=== PATIENT | female | born 1965 | race Caucasian/White ===

== ENCOUNTER 2020-05-16 19:54 | Emergency (ER) | payer OTHER, SELFPAY ==
[2020-05-16 19:56] VITALS: BP 146/93; PULSE 69; RESP 18; TEMP 36.9; O2SAT 96; BMI 32.8
--- NOTE | 2020-05-16 21:05 | RAD_ITS ---
STUDY: X-RAY - LEFT KNEE REASON FOR EXAM: Female, 55 years old. LEFT KNEE PAIN X 1 YEAR TECHNIQUE: 4 view(s) of the knee. COMPARISON: None. FINDINGS: There is a surgical clip within the lateral femoral condyle. There is lucency likely from ACL repair in the proximal tibia and femur. There are small tricompartmental osteophytes. No acute fractures. There are no soft tissue lesions. RAD/Knee 4 or More Views IMPRESSION: Tricompartmental osteoarthrosis, no acute fractures Prior surgery for internal derangement, if there is clinical concern MRI knee could be performed. Electronically Signed: Chas Holley, at 21:24 EDT Tel , Service support ,
--- NOTE | 2020-05-16 21:33 | ED.DCSUM_ITS ---
History of Present Illness Chief Complaint: Lower Extremity Injury Informant: Patient Onset: Weeks Context: Sudden Onset Timing: Intermittent Quality: Limited range of motion with clicking and displacement of patella Location: Left knee Current Severity: Mild Maximum Severity: Moderate Worsened by: Nothing specific Relieved by: Usually by extension Narrative: Patient is a 55-year-old woman who states she was seen here a year ago. Prior records indicates she has not been here since 2012. She does not recall who she was referred to. There is no history of direct trauma. She denies paresthesia, anesthesia motors. She reports pain with weightbearing. Prior similar symptoms: Yes Recent Illness/Hospitalization: No - Past Medical History (1) Dislocation of patella, left, closed Status: Chronic Past Medical History - Allergies and Home Meds Allergies/Adverse Reactions: Allergies No Known Allergies Allergy (Verified 05/16/20 19:58) Primary Care Physician: Chin Sanchez MD [Primary Care Provider] - Prior records reviewed: Yes Surgical History: noncontributory Lives: Spouse/ Significant Other Smoking Status: Never smoker Alcohol: None Drugs: None Review of Systems General: Denies: Chills, Fever, Malaise, Subjective, Sweats Gastrointestinal: Denies: Nausea, Vomiting Musculoskeletal: Reports: Swelling, Extremity Pain. Denies: Myalgias, Arthralgias, Neck pain, Back pain Neurological: Denies: Headache, Parasthesia, Numbness Hematologic: Denies: Easy bruising, Easy bleeding Physical Exam Vital Signs/Narrative: Vital Signs Temp Pulse Resp BP Pulse Ox 05/16/20 19:56 98.4 F 69 18 146/93 H 96 Inital Vital Signs reviewed: Yes General: Well nourished, Well developed, Obese Head: Normocephalic, Atraumatic Eyes: Perrl, EOMI. Negative for: Pale conjunctiva Cardiovascular: Regular rate, Regular rhythm Respiratory: No distress Extremities: No edema, Tenderness - There is tenderness left knee joint line., - - Laxity of the lateral collateral ligament. Unable to perform modified Adriana's test. No laxity with Ryan's test. DP and PT pulse are palpable. There is no mass or fullness in the popliteal fossa. There is swelling the left knee compared to the right. There is no obvious effusion.. Negative for: Nontender Skin: Normal color, No rash Neurological: Alert, Oriented x3, Cranial nerves II-XII grossly intact, Normal Strength, Normal Sensation. Negative for: Normal Gait Psychological: Depressed Diagnostic/Tx/Re-eval Impressions Knee X-Ray 05/16/20 21:05 IMPRESSION: Tricompartmental osteoarthrosis, no acute fractures Prior surgery for internal derangement, if there is clinical concern MRI knee could be performed. Electronically Signed: Chas Holley, at 21:24 EDT Tel , Service support , 05/16/20 21:05 Knee 4 or More Views [RAD] Stat - Medical Decision Making 4 view x-ray of the knee was obtained to assess for arthritis. Patient's history suggestive of chronic subluxation or dislocation of left patella. The x-ray appears abnormal with mild degenerative changes. Read and waited for the radiology report he states there is evidence of tricompartment osteoarthritic arthritis. She was referred to orthopedist juvenile detention officer. She was treated with a knee immobilizer. ED Disposition - Plan for ED Patient: Disposition: Home or Assisted Living Diagnosis: Recurrent subluxation of patella, left knee, Tricompartment osteoarthritis of left knee Prescriptions: Naproxen [Naprosyn] 500 mg PO BID #14 tab Transmission Status: Pending to [id number] Referrals: Chin Sanchez MD [Primary Care Provider] -
--- NOTE | 2020-05-16 21:39 | ED.VISSUMM ---
- ER Visit Summary Date of Service: 05/16/20 Chief Complaint: [] History of Present Illness: The patient is a 55 F [] Physical Examination: [] Test Results: [] Emergency Department Course and Treatment: [] Treatment Plan: [] Disposition: [] Impression: [] This note was generated with [employer] dictation software. It may contain incorrect words, spelling, and punctuation that were not noted in review of the chart prior to signing ED Disposition - Plan for ED Patient: Disposition: Home or Assisted Living Diagnosis: Recurrent subluxation of patella, left knee, Tricompartment osteoarthritis of left knee Instructions: ED Dislocation Patella, ED Osteoarthritis Prescriptions: Naproxen [Naprosyn] 500 mg PO BID #14 tab Transmission Status: Sent to [id number] Referrals: Chin Sanchez MD [Primary Care Provider] - Juvenal Alvarez DO [STAFF PHYSICIAN] - 5-7 Days
[2020-05-16] MEDS: Naproxen 500 MG Tablet PO (22:15)
== END 2020-05-16 22:17 | disposition home or self-care (01) ==
PROVIDERS: Emergency Provider Emergency Medicine; PCP Family Medicine
DX: M22.12 Recurrent subluxation of patella, left knee (principal); M17.12 Unilateral primary osteoarthritis, left knee; E66.9 Obesity, unspecified; Z68.32 Body mass index [BMI] 32.0-32.9, adult
CPT/HCPCS: 73564; 99283

== ENCOUNTER 2020-06-26 05:22 | Day surgery (SDC) | payer OTHER, SELFPAY ==
[2020-06-20 08:45] VITALS: BMI 32.8
--- NOTE | 2020-06-20 08:45 | HP_ITS ---
Intake Vital Signs 06/20/20 BMI 32.8 Intake Visit Reasons: LEFT KNEE Allergies No Known Allergies Allergy (Verified 06/13/20 08:57) Medications acetaminophen 325 mg capsule 325 mg PO ONCE PRN 06/13/20 [History Confirmed 06/20/20] naproxen 250 mg tablet 250 mg PO BID PRN 06/13/20 [History Confirmed 06/20/20] PFSH Social History (Updated 06/20/20 @ 10:[address] Juvenal Alvarez DO) Smoking Status: Never smoker HPI LEFT KNEE: Surgical H&P: Yes Details: Parts of this documentation were recorded by a scribe, this documentation accurately reflects the service provided and the decisions made by me, Dr. Juvenal Alvarez DO 06/20/20 0748. ASHLEY ADAIR is a 55 year old F here today for F/U on left knee after having MRI completed. Patient is continuing to have catching and pain of the left knee. Denies numbness, tingling or other associated symptoms. States she is unable to walk d/t the pain. She has been trying NSAIDs at home. Denies any hx of blood clots. ROS Musc Reports joint pain, Reports joint swelling, Reports limited joint movement, Denies numbness, Denies radiating pain into limb, Reports stiffness, Denies tingling Skin/Breast Denies redness, Denies lesions, Denies itching, Denies rash, Denies skin swelling Neuro No numbness, No tingling Ortho Exam Right Knee Patella Translation: 1 Left Knee Skin/Wound: No ecchymosis, No erythema, No swelling Knee ROM: Yes ROM-Extension -20 to 0, Yes ROM-Flexion 0-140 Examination: Yes med jt line tenderness, No Lat jt line tenderness, No TTP inf pole patella, No Crepitus, Yes Adriana's Test Stability: NML: Anterior Drawer, NML: Posterior Drawer, NML: Valgus 0, NML: Valgus 30, NML: Varus 0, NML: Varus 30 Apprehension with Lateral Translation: No Patella Translation: 1 Patella Grind: Yes KNEE: TTP Anterior Medial No Joint Effusion No Patellar Instability Mild Patella Grind No MCL Tenderness Supplemental Info 06/08/2020 [facility] report and disc: Flap tear involving body of lateral meniscus, Flap tear involving the posterior horn and body medial meniscus. Grade II-III chondromalacia central trochlea grade III chondromalacia medial and lateral femoral condyle and lateral tibial plateau edema and fluid adjacent to proximal lateral gastrocnemius 05/16/2020 x-ray left knee: Radiological evidence of prior ACL reconstruction with button as femoral fixation Faint spurring of the lateral tibial plateau and tibial eminence And patellofemoral spurring Assessment & Plan Problems 1. Acute medial meniscus tear of left knee, subsequent encounter S83.242D 2. Acute lateral meniscus tear of left knee, subsequent encounter S83.282D 3. Primary osteoarthritis of left knee M17.12 Plan Personally reviewed the patients MRI of the left knee. Patient educated that she has very large medial and lateral meniscus tears along with OA of the left knee. Treatment options are do nothing or knee scope to preform medial and lateral meniscectomy. Patient educated that the knee scope may provide her with some relief but she may still have pain because of her arthritis. Reviewed the pre- operative plans with the patient. Risks and benefits of the procedure were fully explained, including but not limited to infection, neurovascular injury, continued pain, arthritis, stiffness, need for further surgery, re-injury, DVT, PE, general risks of anesthesia, and loss of limb or life. The patient understands all the risks and does wish to proceed with written consent. She will be WBAT after surgery. We will add her to the surgery schedule for 07/03/2020 If she is having pain 6 weeks post op then we can provide the patient with an injection. Follow up 2 weeks post op or sooner if pain, swelling, numbness or associated symptoms, or concerns develop. All questions answered. Patient in agreement of plan. Coding Level of Care Code Off vis,est,level 3 Diagnoses Acute medial meniscus tear of left knee, subsequent encounter S83.242D ??Encounter type: subsequent encounter Acute lateral meniscus tear of left knee, subsequent encounter S83.282D ??Encounter type: subsequent encounter Primary osteoarthritis of left knee M17.12 ??Osteoarthritis type: primary 06/20/20 1035 <Electronically signed by Juvenal rahman DO> Date _ Juvenal Alvarez DO
[2020-06-26] VITALS (9 sets, daily range): BP systolic 106–143; BP diastolic 56–86; PULSE 54–68; RESP 6–16; TEMP 36.2–36.7; O2SAT 91–96; BMI 32.9
[2020-06-26] MEDS: Lactated Ringers 1,000 ML 100 ML IV (06:00)
[2020-06-26] MEDS: Cefazolin 2 GM in 0.9% Normal Saline 100 ML IV (07:22)
--- NOTE | 2020-06-26 07:25 | HP.PCM_ITS ---
History and Physical Date of Admission: 06/26/20 Intake Vital Signs 06/20/20 BMI 32.8 Intake Visit Reasons: LEFT KNEE Allergies No Known Allergies Allergy (Verified 06/13/20 08:57) Medications acetaminophen 325 mg capsule 325 mg PO ONCE PRN 06/13/20 [History Confirmed 06/20/20] naproxen 250 mg tablet 250 mg PO BID PRN 06/13/20 [History Confirmed 06/20/20] PFSH Social History (Updated 06/20/20 @ 10:[address] Juvenal Alvarez DO) Smoking Status: Never smoker HPI LEFT KNEE: Surgical H&P: Yes Details: Parts of this documentation were recorded by a scribe, this documentation accurately reflects the service provided and the decisions made by me, Dr. Juvenal Alvarez DO 06/20/20 0748. ASHLEY ADAIR is a 55 year old F here today for F/U on left knee after having MRI completed. Patient is continuing to have catching and pain of the left knee. Denies numbness, tingling or other associated symptoms. States she is unable to walk d/t the pain. She has been trying NSAIDs at home. Denies any hx of blood clots. ROS Musc Reports joint pain, Reports joint swelling, Reports limited joint movement, Denies numbness, Denies radiating pain into limb, Reports stiffness, Denies tingling Skin/Breast Denies redness, Denies lesions, Denies itching, Denies rash, Denies skin swelling Neuro No numbness, No tingling Ortho Exam Right Knee Patella Translation: 1 Left Knee Skin/Wound: No ecchymosis, No erythema, No swelling Knee ROM: Yes ROM-Extension -20 to 0, Yes ROM-Flexion 0-140 Examination: Yes med jt line tenderness, No Lat jt line tenderness, No TTP inf pole patella, No Crepitus, Yes Adriana's Test Stability: NML: Anterior Drawer, NML: Posterior Drawer, NML: Valgus 0, NML: Valgus 30, NML: Varus 0, NML: Varus 30 Apprehension with Lateral Translation: No Patella Translation: 1 Patella Grind: Yes KNEE: TTP Anterior Medial No Joint Effusion No Patellar Instability Mild Patella Grind No MCL Tenderness Supplemental Info 06/08/2020 [facility] report and disc: Flap tear involving body of lateral meniscus, Flap tear involving the posterior horn and body medial meniscus. Grade II-III chondromalacia central trochlea grade III chondromalacia medial and lateral femoral condyle and lateral tibial plateau edema and fluid adjacent to proximal lateral gastrocnemius 05/16/2020 x-ray left knee: Radiological evidence of prior ACL reconstruction with button as femoral fixation Faint spurring of the lateral tibial plateau and tibial eminence And patellofemoral spurring Assessment & Plan Problems 1. Acute medial meniscus tear of left knee, subsequent encounter S83.242D 2. Acute lateral meniscus tear of left knee, subsequent encounter S83.282D 3. Primary osteoarthritis of left knee M17.12 Plan Personally reviewed the patients MRI of the left knee. Patient educated that she has very large medial and lateral meniscus tears along with OA of the left knee. Treatment options are do nothing or knee scope to preform medial and lateral meniscectomy. Patient educated that the knee scope may provide her with some relief but she may still have pain because of her arthritis. Reviewed the pre- operative plans with the patient. Risks and benefits of the procedure were fully explained, including but not limited to infection, neurovascular injury, continued pain, arthritis, stiffness, need for further surgery, re-injury, DVT, PE, general risks of anesthesia, and loss of limb or life. The patient understands all the risks and does wish to proceed with written consent. She will be WBAT after surgery. We will add her to the surgery schedule for 07/03/2020 If she is having pain 6 weeks post op then we can provide the patient with an injection. Follow up 2 weeks post op or sooner if pain, swelling, numbness or associated symptoms, or concerns develop. All questions answered. Patient in agreement of plan. Coding Level of Care Code Off vis,est,level 3 Diagnoses Acute medial meniscus tear of left knee, subsequent encounter S83.242D ??Encounter type: subsequent encounter Acute lateral meniscus tear of left knee, subsequent encounter S83.282D ??Encounter type: subsequent encounter Primary osteoarthritis of left knee M17.12 ??Osteoarthritis type: primary I have re-examined the patient. There are no clinical changes since date of exam Procedure Criteria Procedure Type: Elective COVID Risk Discussion: The surgeon/proceduralist and patient have discussed in detail the risk of exposure to and/or potential harm posed by the COVID-19 virus with having a surgery/procedure at this time versus the risk of delaying the surgery/pro cedure. It is not possible to know either the risk of delaying the surgery or procedure or chance of getting an infection with perfect accuracy, but a joint decision was made between the patient and the surgeon/proceduralist to proceed at this time with the scheduled surgery/procedure as indicated on the consent form.
[2020-06-26] MEDS: Epinephrine (1 mg/ml) 1 MG/ML VIAL (07:46)
[2020-06-26] MEDS: MethylPREDNISolone Acetate 80 MG/ML Vial (08:00)
[2020-06-26] MEDS: Bupiv/Epi 0.5% Mpf 30 ML Vial (08:00)
[2020-06-26] MEDS: Bupivacaine Mpf 0.5% 30 ML VIAL (08:00)
--- NOTE | 2020-06-26 08:30 | DCINST_ITS ---
Discharge Diet: No Restrictions Weight Bearing Status: Weight bearing as tolerated Keep extremity elevated above heart level: Operative Extremity Call your doctor if you observe: Fever of 101 or Higher, Shortness of breath, Chest pain Suture Line Care: Avoid Pulling/Pushing Additional Instructions: Ice and elevate next 72 hours .keep dressing on clean and dry for 48 hours then may remove begin showering daily but do not submerge in tub or pool. After shower may apply Band-Aids . Encourage knee range of motion weightbearing as tolerated, use crutches until confident in knee then may discontinue. No strenuous activity. When not ambulating keep iced and elevated next 72 hours. Call with any questions or concerns. Allergies/Adverse Reactions: Allergies No Known Allergies Allergy (Verified 06/26/20 05:34) Medications to take at Discharge acetaminophen 325 mg capsule 325 mg PO ONCE PRN 06/13/20 naproxen 250 mg tablet 250 mg PO BID PRN 06/13/20 Oxycodone [Oxyir] 5 mg PO Q4H PRN PRN #30 tab 06/26/20 The following prescriptions were given: Oxycodone [Oxyir] 5 mg PO Q4H PRN PRN #30 tab PRN Reason: Pain Score 4-5/10 Transmission Status: Sent to [facility] Primary Care Physician: Chin Sanchez MD [Primary Care Provider] - Test Results: Test results from this visit will be discussed in further detail at your follow- up appointment, if applicable. Please Follow Up With: Juvenal Alvarez DO - 2 weeks
--- NOTE | 2020-06-26 08:31 | OP.PCM_ITS ---
Report of Operation Date of Procedure: 06/26/20 Description of Surgical Findings:: Preop diagnosis: Left knee complex tear medial meniscus radial tear lateral meniscus DJD Postoperative diagnosis: Bucket-handle degenerative complex tear medial meniscus grade III-IV chondromalacia medial femoral condyle medial tibial plateau grade 4 trochlea grade 3 lateral compartment degenerative radial tearing lateral meniscus Procedure: Left knee arthroscopic partial medial meniscectomy partial lateral meniscectomy chondroplasty tricompartmental Anesthesia: General Estimated blood loss: 5 mL Tourniquet time: 39 minutes 300 mmHg Complications: none Indication for procedure: 55-year-old female patient who has had ongoing mechanical knee symptoms with MRI evidence of DJD medial and lateral meniscus tearing the patient did wish to proceed with an elective arthroscopic surgery to attempt to alleviate the symptoms. Risk benefits and alternatives of the procedure were reviewed including risk of bleeding infection nerve artery tissue damage need for further surgery continued pain and expected postoperative course. Procedure: The patient was met in the preoperative holding area. The operative extremity was identified by both patient and physician and family and marked. Patient was brought back to the operating room on a wheeled cart and transferred to the operating table in the supine position. Anesthesia was started. A well- padded tourniquet was placed on the operative extremity. A lower extremity leg chisholm was secured to the operative extremity. The contralateral extremity was well-padded and the end of the bed was flexed to 90 degrees. The patient was prepped and draped in the usual sterile fashion. A timeout was called to ensure the proper patient, procedure, and extremity were being contemplated. 0.5% Marcaine with epinephrine was injected into the planned incisional areas under the skin only. An Esmarch was used to exsanguinate the extremity and the tourniquet was inflated. An 11 blade scalpel was used to make a stab incision in the anterior lateral portal. The arthroscope was inserted into the intercondylar notch and inflow and outflow tubes were attached. Arthroscopic visualization began. The medial compartment was entered. An 18-gauge spinal needle was used to establish the placement for anterior medial portal. An 11 blade scalpel was used to make a stab incision. Blunt probe was inserted followed by a meniscal probe. The medial compartment did have significant d egenerative cartilage pathology of both the medial femoral condyle and medial tibial plateau with areas of grade 4 there was a large bucket-handle type medial meniscus tear with multiple complex tearing patterns of the tissue was friable there was a large osteophyte in the intercondylar space that required removal to allow the procedure this was performed with the shaver and the bearing fashion. The ACL was degenerative but intact . The lateral compartment was entered there was degenerative radial tearing throughout the body of the lateral meniscus which was removed with a shaver as well as grade 3 cartilage wear throughout the lateral compartment with the use of arthroscopic biting instruments and yolanda and ArthroCare wand a partial lateral meniscectomy was performed. The arthroscope was switched to the medial portal to complete the procedure. The medial and lateral gutters were inspected and were free of loose bodies. The patellofemoral joint was inspected grade 4 cartilage wear throughout the trochlea gentle chondroplasty was performed in all compartments. There was good patellar tracking. The knee was thoroughly irrigated and drained. An intra- articular injection with 5 cc 0.5% Marcaine plain 2.5 mg of morphine and 40 mg of Depo-Medrol was injected intra-articularly. The arthroscope was removed the portals were closed with 3-0 nylon arthroscopic stitches. Followed by Xeroform 4 x 4's ABDs web roll and an Sandoval wrap. The tourniquet was let down and the drapes were removed. All counts were correct. The patient was brought back to the PACU in stable condition.
== END 2020-06-26 11:38 | disposition home or self-care (01) ==
LOC: SDC 05:32 → AC 05:32
PROVIDERS: Anesthesiology; PCP Family Medicine; Referring Provider Orthopaedic Surgery; Visit Provider Orthopaedic Surgery
PROC: (CPT 29870; principal; 2020-06-26 07:10)
DX: M17.12 Unilateral primary osteoarthritis, left knee (principal); S83.242D Other tear of medial meniscus, current injury, left knee, subsequent encounter; S83.282D Other tear of lateral meniscus, current injury, left knee, subsequent encounter
CPT/HCPCS: 29880; 87635; C9803; J7120; J2405; U0003